=== PATIENT | male | born 1970 | race Caucasian/White ===

== ENCOUNTER 2017-07-01 15:28 | Emergency (ER) | payer BC ==
[~2017-07-01] VITALS: Ht 172.7 cm; Wt 99.8 kg
--- NOTE | ~2017-07-01 | CR127 ---
[facility] A Service of [facility] [place] RADIOLOGY TEXT RESULTS PATIENT: J LUIS BARON LOCATION: [facility] : 72 UNIT #: [id number] AGE: [address]: Aletha Nascimento SEX: M ORDER DR: [id number] [facility]. [place], [place] [address] [id number] MR#: [id number] Acc #: [id number] NAME: J LUIS BARON : 1970 SEX: M STUDY DATE/TIME: 07/01/2017 15:56 UNIT: [place] ROOM: STUDY DESCRIPTION: CR Foot Complete Min 3 View Rt Attending Physician: Aletha Nascimento Pa-C Ordering Physician: Aletha Nascimento Pa-C Primary Care Physician: No Primary Care Physician MEDICAL IMAGING REPORT This report is preliminary unless electronic signature is present EXAM Right foot, 3 views. HISTORY Twisted foot and ankle 2 days ago. Foot and ankle pain. FINDINGS Three views of the right foot demonstrates no acute fracture or dislocation. Mild soft tissue swelling over the dorsal and lateral aspect of the foot. Well-corticated ossicles are seen distal fibula, probably represents the sequelae of old trauma. Lucency seen in the distal fibula suggests previous lateral ankle ligament reconstruction. Metatarsals and phalanges are unremarkable. There is a small accessory navicular. IMPRESSION 1. Mild dorsal and lateral foot soft tissue swelling. No definite acute fracture or dislocation. 2. Chronic changes lateral ankle probably related to previous lateral ankle ligament reconstruction and prior injury. Dictated by... Abby Merida M.D. THIS IS AN ELECTRONICALLY VERIFIED REPORT Abby Merida M.D. at 07/02/2017 2:30 PM KULDEEP/tia TD: 07/02/2017 01:17 JOB #: [id number] MEDICAL IMAGING REPORT [facility] A Service [facility] RADIOLOGY TEXT RESULTS PATIENT: J LUIS BARON LOCATION: [facility] : 72 UNIT #: [id number] AGE: [address]: Aletha Nascimento SEX: M ORDER DR: Page 1 of 1 COPY
--- NOTE | ~2017-07-01 | CR21 ---
[facility] A Service of [facility] RADIOLOGY TEXT RESULTS PATIENT: J LUIS BARON LOCATION: [facility] : 71 UNIT #: [id number] AGE: [address]: Aletha Nascimento SEX: M ORDER DR: [id number] [facility]. [place], [place] [address] [id number] E MR#: [id number] Acc #: [id number] NAME: J LUIS BARON : 1970 SEX: M STUDY DATE/TIME: 07/01/2017 15:55 UNIT: [facility] ROOM: STUDY DESCRIPTION: CR Ankle Min 3 Views Rt Attending Physician: Aletha Nascimento Pa-C Ordering Physician: Aletha Nascimento Pa-C Primary Care Physician: No Primary Care Physician MEDICAL IMAGING REPORT This report is preliminary unless electronic signature is present EXAM Right ankle, 3 views. HISTORY Twisted foot and ankle 2 days ago. Pain and swelling. FINDINGS Three views of the right ankle demonstrates a lucency through the distal fibula most likely related to tunneling for previous lateral ankle ligament reconstruction. Arthritic changes are seen about the ankle joint with hypertrophic spurring medial malleolus medial aspect of the talus. Well corticated ossification seen inferior to the distal fibula, most likely represents the sequelae of old injury. No definite acute fracture. Ankle mortise appears intact. No joint effusion. Mild lateral ankle soft tissue swelling. Midfoot and subtalar joint unremarkable. IMPRESSION 1. No acute fracture or dislocation. 2. Lateral ankle soft tissue swelling suggests soft tissue injury. 3. Postsurgical changes of the lateral aspect of the ankle suggest previous lateral ankle ligament reconstruction. Correlate with history. There is also well-corticated ossific density off the distal aspect of the fibula, probably represents the sequelae of old trauma. Again, no definite acute fracture or dislocation noted. 4. Early arthritic changes ankle joint. Dictated by... Abby Merida M.D. THIS IS AN ELECTRONICALLY VERIFIED REPORT Abby Merida M.D. at 07/02/2017 2:30 PM [facility] A Service of [facility] RADIOLOGY TEXT RESULTS PATIENT: J LUIS BARON LOCATION: [facility] : 72 UNIT #: [id number] AGE: [address]: Aletha Nascimento SEX: M ORDER DR: Huang TD: 07/02/2017 01:09 JOB #: [id number] MEDICAL IMAGING REPORT Page 1 of 1 COPY
== END 2017-07-01 16:53 | disposition home or self-care (01) ==
LOC: CED 15:28 → CFTX 15:28
DX: S93.401A Sprain of unspecified ligament of right ankle, initial encounter (principal); Z88.5 Allergy status to narcotic agent; X50.1XXA Overexertion from prolonged static or awkward postures, initial encounter; Y92.009 Unspecified place in unspecified non-institutional (private) residence as the place of occurrence of the external cause
CPT/HCPCS: 29515; 73610; 73630; 99283